=== PATIENT | female | born 1980 | race Caucasian/White ===

== ENCOUNTER 2019-11-07 19:19 | Emergency (ER) | payer OTHER ==
[~2019-11-07] VITALS: Ht 180.3 cm; Wt 145.2 kg
[2019-11-07] MEDS ORDERED: PRAVACHOL40 M1 PO (19:24)
[2019-11-07] MEDS ORDERED: LEVOXYL25 MCG PO (19:24)
[2019-11-07] MEDS ORDERED: BIRTH CONTROL (19:24)
[2019-11-07 19:45] LABS: ABSOLUTE BASOPHILS 0.1 thou/uL (0.0-0.2); ABSOLUTE EOSINOPHILS 0.2 thou/uL (0.0-0.7); ABSOLUTE LYMPHOCYTES 2.9 thou/uL (0.8-5.3); ABSOLUTE MONOCYTES 0.5 thou/uL (0.0-1.2); HEMATOCRIT 37.2 % (37.0-47.0); HEMOGLOBIN 12.8 gm/dL (12.0-15.0); LYMPHOCYTES 33.4 %; MCH 32.1 pg (26.0-34.0); MCHC 34.4 g/dL (28.0-37.0); MCV 93.3 fL (80.0-100.0); MONOCYTES 5.6 %; MPV 7.6 fl. (7.2-11.1); NUCLEATED RBCS 0 /100WBC; PLATELET COUNT* 335 thou/uL (150-400); RBC 3.99 mil/uL (4.20-5.00); WBC 8.6 thou/uL (4.0-11.0)
[2019-11-07 19:59] LABS: CALCIUM 9.2 mg/dL (8.5-10.1); CREATININE 1.3 mg/dL (0.6-1.3); POTASSIUM 3.8 mmol/L (3.5-5.1)
[2019-11-07 20:07] LABS: ALBUMIN 3.3 g/dL (3.4-5.0); TOTAL BILIRUBIN 0.3 mg/dL (<0.1-1.0); TOTAL PROTEIN 8.1 g/dL (6.4-8.2)
[2019-11-07 22:00] VITALS: BP 130/70
[2019-11-07] MEDS ORDERED: PROTONIX40 M4 PO (22:11)
[2019-11-07] MEDS ORDERED: ZOFRAN ODT4 MG DISSOLVE (22:11)
--- NOTE | 2019-11-08 12:58 | EKG ---
[place] [address] ELECTROCARDIOGRAM REPORT Name: ALFONSO DELACRUZ Room: [facility]#: [id number] Admission: 11/07/19 Attend Phys: Discharge: 11/07/19 Date of : 84 Date of Service: 11/07/191924 Report #: [id number] THIS REPORT FOR: //name// [facility] ED Test Date: 2019-11-07 Test Time: 19:25:43 Pat Name: ALFONSO DELACRUZ Department: Room: Gender: Binder Layer: ANASTASIA : 1980 Requested By: Wilbur Rea Order Number: [id number] MD: Hai Sinclair Measurements Intervals [place] Rate: 88 P: 32 VT: 136 QRS: 19 QRSD: 89 T: 12 QT: 368 QTc: 446 Interpretive Statements Sinus rhythm Low voltage, precordial leads Baseline wander in lead(s) I No previous ECG available for comparison Electronically Signed On 11-08-2019 12:58:04 CDT by Hai Sinclair [email or web address] <ELECTRONICALLY SIGNED> By: Hai Sinclair MD, [facility] 11/08/19 1258 1925 24 Hai Sinclair MD, [facility] /EPI
[2019-11-29] MEDS ORDERED: ISIBLOOM 28 DA1 EACH PO (08:42)
[2019-11-29] MEDS ORDERED: APPLE CIDER VI500 MG PO (08:44)
[2019-12-03] MEDS ORDERED: ROXICODONE5 M2 PO (12:12)
== END 2019-11-07 22:00 | disposition home or self-care (01) ==
LOC: M.ERS 19:19
PROVIDERS: Emergency Medicine Emergency Medical Services
DX: R07.89 Other chest pain (principal); R10.84 Generalized abdominal pain; Z88.2 Allergy status to sulfonamides

== ENCOUNTER 2019-11-09 00:20 | Emergency (ER) | payer OTHER ==
[~2019-11-09] VITALS: Ht 180.3 cm; Wt 145.2 kg
[~2019-11-09 00:20] MED LIST: BIRTH CONTROL; LEVOXYL25 MCG PO; PRAVACHOL40 M1 PO; PROTONIX40 M4 PO; ZOFRAN ODT4 MG DISSOLVE
[2019-11-09 00:58] LABS: ABSOLUTE BASOPHILS 0.1 thou/uL (0.0-0.2); ABSOLUTE EOSINOPHILS 0.3 thou/uL (0.0-0.7); ABSOLUTE LYMPHOCYTES 3.3 thou/uL (0.8-5.3); ABSOLUTE MONOCYTES 0.6 thou/uL (0.0-1.2); ABSOLUTE NEUTROPHILS 4.5 thou/uL (1.6-8.1); BASOPHILS 0.7 %; EOSINOPHILS 2.9 %; HEMATOCRIT 34.9 % (37.0-47.0); MCH 32.2 pg (26.0-34.0); MCHC 34.5 g/dL (28.0-37.0); MCV 93.3 fL (80.0-100.0); MONOCYTES 6.7 %; MPV 7.2 fl. (7.2-11.1); NUCLEATED RBCS 0 /100WBC; PLATELET COUNT* 297 thou/uL (150-400); POLYS 51.7 %; RBC 3.74 mil/uL (4.20-5.00); RDW-CV 12.8 % (10.5-14.5); WBC 8.8 thou/uL (4.0-11.0)
[2019-11-09 01:04] LABS: URINE BILIRUBIN NEGATIVE (Negative); URINE BLOOD 3+ (Negative); URINE CLARITY CLEAR; URINE COLOR YELLOW; URINE GLUCOSE-RANDOM NEGATIVE (Negative); URINE KETONES NEGATIVE (Negative); URINE LEUKOCYTES-REFLEX NEGATIVE (Negative); URINE NITRITE-REFLEX NEGATIVE (Negative); URINE PROTEIN 1+ (Negative); URINE UROBILINOGEN 0.2 E.U./dl (0.2-1.0)
[2019-11-09 01:05] LABS: SQUAMOUS 4-10 Moderate /LPF (0-3); URINE WBC-REFLEX 6-15 Few /HPF (0-5)
[2019-11-09 01:06] LABS: BACTERIA-REFLEX >30 Many /HPF (None Seen); CASTS None Seen /LPF (None Seen); CRYSTALS None Seen /LPF (None Seen); MUCUS 4-6 Moderate strn/LPF (None Seen)
[2019-11-09 01:31] LABS: CALCIUM 8.7 mg/dL (8.5-10.1); CREATININE 1.3 mg/dL (0.6-1.3); POTASSIUM 3.8 mmol/L (3.5-5.1)
[2019-11-09 01:35] LABS: TOTAL BILIRUBIN 0.2 mg/dL (<0.1-1.0); TOTAL PROTEIN 7.2 g/dL (6.4-8.2)
[2019-11-09] MEDS ORDERED: IBUPROFEN 800800 M1 PO (04:35)
[2019-11-09] MEDS ORDERED: NORCO 5-325 TA1 EAC2 PO (04:35)
[2019-11-09] MEDS ORDERED: ZOFRAN ODT4 MG DISSOLVE (04:35)
[2019-11-09 04:54] VITALS: BP 130/68
--- NOTE | 2019-11-09 10:33 | EKG ---
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 : 1980 Requested By: Wilbur Rea Order Number: [id number] MD: Marcelo Daley Measurements Intervals [place] Rate: 74 P: 47 CO: 144 QRS: 22 QRSD: 95 T: 10 QT: 375 QTc: 416 Interpretive Statements Sinus rhythm Low voltage, precordial leads Baseline wander in lead(s) I,II,aVR Compared to ECG 11/07/2019 19:25:43 No significant changes Electronically Signed On 11-09-2019 10:33:32 CDT by Marcelo Daley [email or web address] <ELECTRONICALLY SIGNED> By: Marcelo Daley MD, FAC 11/09/19 1033 0056 0056 Marcelo Daley MD, [facility] /EPI
== END 2019-11-09 04:55 | disposition home or self-care (01) ==
LOC: M.ERS 00:20
PROVIDERS: Emergency Medicine Emergency Medical Services
DX: K80.50 Calculus of bile duct without cholangitis or cholecystitis without obstruction (principal); Z88.2 Allergy status to sulfonamides

== ENCOUNTER → 2019-11-28 | Outpatient (CLI) | payer OTHER ==
[~2019-11-28] MED LIST changes: +APPLE CIDER VI500 MG PO; +IBUPROFEN 800800 M1 PO; +ISIBLOOM 28 DA1 EACH PO; +NORCO 5-325 TA1 EAC2 PO
== END ==
LOC: M.LAB 14:23
PROVIDERS: ATTEND Surgery
DX: Z01.812 Encounter for preprocedural laboratory examination (principal); Z11.59 Encounter for screening for other viral diseases

== ENCOUNTER → 2019-12-03 | Day surgery (SDC) | payer OTHER ==
[~2019-12-03] MED LIST changes: +ROXICODONE5 M2 PO
--- NOTE | ~2019-12-03 | OP ---
[address] [address] [place] [address] OPERATIVE REPORT Name: ALFONSO DELACRUZ Room: [facility]#: [id number] Admission: 12/03/19 Attend Phys: Isabella Singer DO Discharge: Date of : 84 Report #: [id number] THIS REPORT FOR: //name// cc: Derek Perez MD, Khanh MD ~ THIS REPORT FOR: //name// CC: Isabella Perez DATE OF SERVICE: 12/03/2019 PREOPERATIVE DIAGNOSIS: Symptomatic gallstones. POSTOPERATIVE DIAGNOSIS: Symptomatic gallstones. FINDINGS: Several small stones in the gallbladder. SURGEON: Isabella Singer DO COSURGEON: Curtis Flores, PGY-1. WATCHER LOOKOUT TOWER: SALAZAR Weaver student. PROCEDURE PERFORMED: Laparoscopic cholecystectomy. ANESTHESIA: General endotracheal, local, and TAP block. ESTIMATED BLOOD LOSS: 10 mL. DRAINS: None. SPECIMENS: Gallbladder. COMPLICATIONS: None. CONDITION: Stable. DISPOSITION: PACU to home. HISTORY OF PRESENT ILLNESS: The patient is a very pleasant 39-year-old female who presented to my office with a complaint of right upper quadrant abdominal pain associated with nausea. She was found to have gallstones in the gallbladder. She was then consented for a laparoscopic cholecystectomy, possible open. Risks discussed included bleeding; infection; pain; scar formation; injury to bowel, liver or bile duct; hernia at the incision sites; [address] [address] OPERATIVE REPORT Name: NUBIAALFONSO K Room: [facility]#: [id number] Admission: 12/03/19 Attend Phys: Isabella Singer DO Discharge: Date of : 84 Report #: [id number] need for an open procedure; and risks of general anesthesia. The patient understood these risks and elected to proceed. DESCRIPTION OF PROCEDURE: The patient was brought to the operating room. She was laid supine on the operating room table. SCDs were placed on bilateral lower extremities. Ancef was given in the perioperative period. General endotracheal anesthesia was induced by Anesthesia without difficulty. Abdomen was prepped and draped in the standard sterile fashion. Time-out was performed to verify patient and procedure. A 10 mL of 0.5% Marcaine were injected in the supraumbilical area. Incision was made with 11 blade. Cautery was used for hemostasis. S retractors were used to visualize fascia. Fascia was grasped and elevated between 2 Kochers. Fascia was incised using cautery. Peritoneum was bluntly entered using a Fatou clamp. Finger was introduced into the abdomen to assure that there were no angela-incisional adhesions, none were identified. Two stitches of 0 Vicryl were placed on the fascia. Brent trocar was introduced and secured with 0 Vicryl stitches. Abdomen was insufflated. The patient was tilted head up and left side down. Camera was introduced and a brief anterior abdominal exploration was undertaken with no significant findings. Three 5-mm trocars were introduced, all under direct visualization, 1 in the subxiphoid area and 2 in the right upper quadrant. Gallbladder was grasped and elevated. Cautery was used to incise the peritoneum overlying the triangle of Calot. Duct and artery were then both easily visualized, both were circumferentially dissected free using a [place] dissector. Duct and artery were then both doubly clipped and ligated. Gallbladder was then removed from the liver bed utilizing cautery with no further difficulty. Specimen was placed within an EndoCatch bag. Liver bed was inspected and appeared to be hemostatic. Clips were inspected. They appeared to be intact. Common bile duct could be seen below as the critical view had been obtained. Liver was then allowed to fall into its anatomical position. Trocars were removed under direct visualization. There was no bleeding noted from the peritoneum. Abdomen was then completely desufflated. Brent trocar was removed and EndoCatch bag was removed with specimen intact. Kochers were placed on the fascia of the supraumbilical port. Previously placed 0 Vicryl stitch was removed and a 0 Vicryl stitch was placed in [id number] fashion with excellent approximation of the fascia. An additional 5 mL of 0.5% Marcaine were injected in the fascia. This wound was closed in a layered fashion using deep and superficial stitches of 3-0 Vicryl in inverted interrupted fashion closing the fatty and the subcutaneous layers. All wounds were then closed with 4-0 Monocryl. A total of 30 mL of 0.5% Marcaine were used to anesthetize the wounds. Wounds were then cleansed and covered with skin glue. The patient was then left in the care of Anesthesia for application of TAP blocks. She will then be transported to the recovery room. By: 1121 [id number] Singer DO /nt
[2019-12-03 08:31] LABS: HEMATOCRIT 36.6 % (37.0-47.0); HEMOGLOBIN 12.5 gm/dL (12.0-15.0)
--- NOTE | 2019-12-05 17:06 | PATH ---
[address] [address] PATHOLOGY RPT PROCEDURE Name: NORIS REYES Room: [facility]#: [id number] Admission: 12/03/19 Date of : 84 Discharge: Report #: [id number] Path Case #: [id number] [facility] Accession Number: [id number] . 01 Material submitted: . gallbladder - GALLBLADDER AND CONTENTS . 01 Clinical history: . Calculus of gallbladder without obstruction . 02 Diagnosis: Gallbladder and contents: - Chronic cholecystitis, cholesterolosis, and cholelithiasis. (REDDY:pit 12/05/2019) [facility] 12/05/2019 1537 Local . 02 Electronically signed: . Esteban Yao MD, Pathologist NPI- [id number] . 01 Gross description: . The specimen is received in formalin labeled "Reyes, Noris, gallbladder and contents" and consists of intact green gallbladder measuring 8.0 x 3.1 x 2.8 cm. The margin is inked black. Opening reveals a lumen filled with viscous green bile and multiple mulberry yellow calculi measuring up to 1.3 cm. The mucosa is green with extensive yellow stippling and an average wall thickness of 0.1 cm. No masses are identified. Clay Maker sections are submitted in A1. (SDY; 12/04/2019) SYU/SYU 12/04/2019 1143 Local . 02 Pathologist provided ICD-10: K80.10 . 02 CPT . 630576 Specimen Comment: A courtesy copy of this report has been sent to [phone], [phone] Specimen Comment: [phone] Specimen Comment: Report sent to / DR DAY Performed at: [id number] [facility] [address], [place], [place] [id number] MD Aakash Sloan MD Phone: [phone] Performed at: 02 [facility] [address], [place], [place] [id number] MD Esteban Yao MD Phone: [phone]
== END | disposition home or self-care (01) ==
LOC: M.SUR 07:36
PROVIDERS: ATTEND Surgery
DX: K80.10 Calculus of gallbladder with chronic cholecystitis without obstruction (principal); E03.9 Hypothyroidism, unspecified; E78.5 Hyperlipidemia, unspecified; E66.01 Morbid (severe) obesity due to excess calories; Z79.899 Other long term (current) drug therapy; Z98.890 Other specified postprocedural states; Z88.8 Allergy status to other drugs, medicaments and biological substances; Z88.2 Allergy status to sulfonamides